=== PATIENT | female | born 1975 | race Caucasian/White ===

== ENCOUNTER 2022-12-12 10:14 | Outpatient (OUT) | payer OTHER, SELFPAY ==
--- NOTE | 2022-12-12 10:00 | VEIN_ITS ---
[address] [address] Patient Name: IFTIKHAR GREEN MRN: [id number] date: 1975 Sex: F Assigned Patient Location: Current Patient Location: Accession/Order Number: [id number] Exam Date: 12/12/2022 10:19 Report Date: 12/12/2022 12:52 At the request of: AMY MADRID Procedure: VC INJ Sclerosing SOLMULT Vein EXAMINATION: VC INJ Sclerosing SOLMULT Vein HISTORY: Painful Varicose Veins The risks and benefits of the procedure were explained at length to the patient and informed written consent was obtained. Charlie Rivera RN was present and assisted. The procedure was performed under sterile technique. The patient's leg was wrapped with Coban and postprocedural verbal and written instructions provided. SCLEROSANT: 2 cc, 0.5% polidocanol VEIN(S) INJECTED: 18 veins in the right leg VISUALIZATION: Ultrasound was not used to visualize the sclerosant ANESTHESIA: Supercooled air COMPLICATIONS: None IMPRESSION: Technically successful sclerotherapy as described Electronically authenticated by: GAGANDEEP CLOUD Date: 12/12/2022 12:52
== END 2022-12-12 10:15 | disposition home or self-care (01) ==
LOC: VC 10:15
PROVIDERS: PCP Radiology Diagnostic Radiology; Visit Provider Radiology Diagnostic Radiology
DX: I83.813 Varicose veins of bilateral lower extremities with pain (principal)
CPT/HCPCS: 36471

== ENCOUNTER 2023-02-23 09:27 | Outpatient (OUT) | payer OTHER, SELFPAY ==
--- NOTE | 2023-02-23 09:28 | VEIN_ITS ---
[address] [address] Patient Name: IFTIKHAR GREEN MRN: [facility]:[id number] date: 1975 Sex: F Assigned Patient Location: Current Patient Location: Accession/Order Number: [id number] Exam Date: 02/23/2023 09:28 Report Date: 02/23/2023 11:59 At the request of: AMY MADRID Procedure: VC INJ Sclerosing SOLMULT Vein EXAMINATION: VC INJ Sclerosing SOLMULT Vein HISTORY: I83.813 Pain due to varicose veins of bilateral leg veins COMPARISON: No relevant comparison available. TECHNIQUE: The risks and benefits of the procedure were explained at length to the patient and informed written consent was obtained. Arlene was present and assisted. The procedure was performed under sterile technique. The patient's leg was wrapped with Coban and postprocedural verbal and written instructions provided. SCLEROSANT: 4 cc, 0.5% polidocanol VEIN(S) INJECTED: 13 veins in the left leg VISUALIZATION: Ultrasound was not used to visualize the sclerosant ANESTHESIA: Supercooled air COMPLICATIONS: None VEIN/VC INJ Sclerosing SOLMULT Vein IMPRESSION: Technically successful sclerotherapy as described Electronically authenticated by: AMY MADRID Date: 02/23/2023 11:59
== END 2023-02-23 09:28 | disposition home or self-care (01) ==
LOC: VC 09:27
PROVIDERS: PCP Radiology Diagnostic Radiology; Visit Provider Radiology Diagnostic Radiology
DX: I83.813 Varicose veins of bilateral lower extremities with pain (principal)
CPT/HCPCS: 36471

== ENCOUNTER 2023-08-02 09:06 | Outpatient (OUT) | payer OTHER, SELFPAY ==
--- NOTE | 2023-08-02 09:07 | VEIN_ITS ---
Patient Name: IFTIKHAR GREEN MR#: [id number] : 1975 Exam Date: 08/02/2023 Ordering Doctor: DR CARLO ALLAN M.D. RADIOLOGY REPORT PROCEDURE: VC EXT VENOUS REFLUX LT LMTD COMPARISON: None. INDICATIONS: Pain due to varicose veins of bilateral legs I83.813 TECHNIQUE: Duplex imaging of the lower extremity to assess the deep and superficial venous system for the presence of deep or superficial venous incompetence and to document the location and severity of disease. The study includes evaluation of the great saphenous vein (GSV), anterior accessory saphenous vein (AASV) and small saphenous vein (SSV). Patient scanned in reverse Trendelenburg and standing. FINDINGS: LEFT LOWER EXTREMITY: Saphenofemoral Junction Reflux: Yes7.1 mm 0.5 sec GSV: Diam (mm) Reflux/Time (sec) Proximal Thigh 5.9 Yes 0.9 Mid Thigh 2.7 No Distal Thigh 3.3 No Prox Calf 2.3 No Mid Calf 1.5 No Saphenopopliteal Junction Reflux: SSV: Proximal Calf 3.1 No Mid Calf 2.0 No AASV: Not present Thrombi: No acute or chronic thrombus visualized Compressibility: Normal Flow: Normal Tech Note: Incompetent GSV. 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 No SPJ visualized. Patent varicose vein medial knee 3.6mm with 0.9s reflux. Patent varicose vein prox/post calf 5.0mm with 1.3s reflux. Patent varicose vein mid/post calf 5.3mm with 2.2s reflux. CONCLUSION: 1. Minimal reflux identified in a small portion of the left great saphenous vein 2. Left leg incompetent varicose veins measuring up to 5.3 mm Dictated by: Carlo Allan MD on 08/02/2023 at 09:45 Approved by: Carlo Allan MD on 08/02/2023 at 09:46
--- NOTE | 2023-08-02 09:07 | VEIN_ITS ---
Patient Name: IFTIKHAR GREEN MR#: [id number] : 1975 Exam Date: 08/02/2023 Ordering Doctor: DR CARLO ALLAN M.D. RADIOLOGY REPORT PROCEDURE: FACILITY EST [facility]PRE[facility]ENS[facility] - OFFICE VISIT INITIAL COMPARISON: EXT VENOUS REFLUX LT LMTD, 08/02/2023. PROGRESS NOTES: 48-year-old female who presents with continued, increased pain in her left leg. The patient describes the pain as aching heaviness and throbbing with cramps primarily along the left medial and posterior calf. The patient rates the pain as a 10 on a scale of 1-10 with significant increase from her last visit. The patient's symptoms are minimally relieved by rest, leg elevation and support stockings which she has worn for years. The patient denies any signs and symptoms to suggest arterial ischemia. The patient has previously been seen at our facility having right leg treatments including intravenous laser ablation and injection sclerotherapy. The patient's insurance declined micro foam chemical foam treatments. The patient's pain now fax her activities of daily living requiring her to stop multiple times throughout the course of the day. The patient has difficulty walking. The patient describes a family history significant for breast cancer lung cancer and hypertension and varicose veins in her mother. . The patient has never smoked. Occasional alcohol use. No illicit drug use. Past medical history significant for low back pain, superficial thrombophlebitis. Past surgical history significant for rhinoplasty. No history of deep vein thrombus or pulmonary embolus. See separate history and physical for medication list. Nursing notes were reviewed. After history and physical exam I discussed at length the pathophysiology of venous hypertension and possible treatments, therapies and strategies available. We discussed at length the importance of elevating the lower extremities above the level of the heart, increased physical activity and compression stocking use. The patient's symptoms and focal pain correspond to multiple incompetent varicose veins along the left lower leg. This was discussed with the patient, unfortunately her insurance company does not approve micro foam chemical ablation. The patient was given a self pay option. Ultrasound venous reflux study performed the same day was discussed at length with the patient. The report demonstrates mild reflux proximal left great saphenous vein period moderate incompetent patent left leg varicose veins PHYSICAL EXAM: The right leg demonstrates scattered reticular and spider veins. No large varicose veins are observed. No active ulceration. No significant edema or hemosiderin staining. The left leg demonstrates multiple varicose veins along the left medial posterior knee and calf. No erythema or warmth to suggest cellulitis or thrombophlebitis. No active ulceration or hemosiderin staining. No subcutaneous edema. Both thighs, legs and feet were symmetrically warm to the touch. Good posterior tibial and dorsalis pedis pulses were present bilaterally. VEIN/VC Facility EST Comprehensive IMPRESSION: 1. Minimal proximal left great saphenous vein venous insufficiency 2. Moderate left leg lower extremity varicose veins 3. No definite lower extremity subcutaneous edema 4. No definite flow significant arterial disease 5. CEAP: C2, Ep, As, Pr PLAN: 1. Microfoam chemical ablation incompetent left leg varicose veins 2. Continue long-term use of bilateral thigh or knee high 20-30 mm compression stockings 3. Continued leg elevation and physical activity for symptomatic relief Nurse notes, history and physical were reviewed and confirmed, see attached forms. The nurse was present throughout the physical exam and consultation Dictated by: Carlo Allan MD on 08/02/2023 at 11:40 Approved by: Carlo Allan MD on 08/02/2023 at 11:47
== END 2023-08-02 09:07 | disposition home or self-care (01) ==
LOC: VC 09:06
PROVIDERS: PCP Radiology Diagnostic Radiology; Visit Provider Radiology Diagnostic Radiology
DX: I83.813 Varicose veins of bilateral lower extremities with pain (principal)
CPT/HCPCS: 93971; G0463

== ENCOUNTER 2024-02-07 12:50 | Outpatient (OUT) | payer OTHER, SELFPAY ==
--- OUTSIDE RECORDS SUMMARY | 2024-02-07 12:56 | XMS_ITS ---
Author Name Auto Generated Organization [facility] Care Team Providers Care Medical Consultant Name Role Phone SONIA RAMIREZ Attending Unavailable NADERER, SONIA Referring Unavailable PETITTI, ADAM Mello Attending Unavailable NADERER, SONIA Referring Unavailable NADERER, SONIA Attending Unavailable NADERER, SONIA Attending Unavailable PETITTI, ADAM Mello Attending Unavailable PROBLEMS No Problem Records Found PROCEDURES No Procedure Records Found RESULTS BI MAMMOGRAM SCREENING TOMOSYNTHESIS BILATERAL Observed: 09/26/2023 1:48 PM Status: F Source: [facility] EPIC REPOSITORY This is a summary report. Th e complete report is available in the patient's medical record. If you cannot access the medical record, please contact the sending organization for a detailed fax or copy. EXAMINATION: BI MAMMOGRAM SCREENING TOMOSYNTHESIS BILATERAL CLINICAL HISTORY:Screening COMPARISON: There are no previous mammograms available for comparison. RESULT: Digital mammography and 3D tomosynthesis of bilateral breasts was performed. Density: Scattered fibroglandular density [2] There is no suspicious mass, asymmetry, architectural distortion, or calcification. IMPRESSION: BIRADS 1 - Negative Follow-up: Routine Screening Mamm Board Certified Radiologists. Accredited by the ACR and FDA. MAMMOGRAPHY IS VERY IMPORTANT TO YOUR HEALTH. THE [employer] GUIDELINES RECOMMEND THAT WOMEN 40 YEARS OF AGE AND OLDER SHOULD HAVE A MAMMOGRAM EVERY YEAR. A REMINDER LETTER WILL BE SENT AT THE APPROPRIATE TIME. THIS FACILITY UTILIZES A REMINDER SYSTEM TO ENSURE ALL PATIENTS RECEIVE REMINDER NOTIFICATIONS AT THE APPROPRIATE TIME BASED ON THE RECOMMENDATIONS OF THIS EXAM. THIS INCLUDES REMINDERS FOR ROUTINE SCREENING MAMMOGRAMS, DIAGNOSTIC MAMMOGRAMS IN WHICH THE PATIENT IS ASKED TO RETURN FOR ADDITIONAL VIEWS, OR OTHER BREAST IMAGING INTERVENTIONS WHEN APPROPRIATE. THE PATIENT WILL BE PLACED IN THE APPROPRIATE REMINDER SYSTEM INCLUDING A REMINDER AT THE APPROPRIATE TIME FOR ANY PENDING ADDITIONAL VIEWS. TRANSCRIBED BY: ELECTRONICALLY SIGNED BY: Renard Banda MD ALLERGIES No Allergies Records Found ENCOUNTERS ADMIT/DISCHARGE ACCOUNT NUMBER ADMITTING ENCOUNTER CLASS LOCATION SOURCE 01/31/2024/ 4 [id number] Ambulatory Building:[facility] EPIC 12/19/2023/ 4 [id number] Ambulatory Building:[facility] EPIC 10/25/2023/ 4 [id number] Ambulatory Building:[facility] EPIC 09/27/2023/ 4 [id number] Ambulatory Building:[facility] EPIC 09/26/2023/ 4 [id number] Ambulatory Building:[facility] EPIC 09/17/2023/ 4 [id number] Ambulatory Building:[facility] EPIC PAYERS ENCOUNTER GUARANTOR PAYER SUBSCRIBER SOURCE 01/31/2024 IFTIKHAR R CLICKDOB: [place], [place] [address]Azd: (HP) [facility]: [id number] Date:2022-07-09 IFTIKHAR R CLICKDOB: [id number] [place], [place] [id number] [place] [address] [facility] EPIC 12/19/2023 IFTIKHAR R CLICKDOB: [place], [place] [address]Ggy: (HP) [facility] Insurance:[facility] Number: [id number] Date:2022-07-09 IFTIKHAR R CLICKDOB: [id number] [place] [address] [facility] EPIC 10/25/2023 IFTIKHAR R CLICKDOB: [place], [place] [address]Orm: (HP) Primary Insurance:[place] MEDICAIDPolicy Number: [id number] Date:2023-07-09 IFTIKHAR R CLICKDOB: [id number] [place] [address] [facility] EPIC 10/25/2023 Secondary Insurance:[facility]Policy Number: [id number] Date:2022-07-09 IFTIKHAR R CLICKDOB: [id number] [place] [address] [facility] EPIC 09/27/2023 IFTIKHAR R CLICKDOB: [place], [place] [address]Tka: (HP) Primary Insurance:[place] MEDICAIDPolicy Number: [id number] Date:2023-07-09 IFTIKHAR R CLICKDOB: [id number] [place] [address] [facility] EPIC 09/27/2023 Secondary Insurance:[facility]Policy Number: [id number] Date:2022-07-09 IFTIKHAR R CLICKDOB: [id number] [place] [address] [facility] EPIC 09/26/2023 IFTIKHAR R CLICKDOB: [place], [place] [address]Sla: (HP) Primary Insurance:[place] MEDICAIDPolicy Number: [id number] Date:2023-07-09 IFTIKHAR R CLICKDOB: [id number] [place] [address] [facility] EPIC 09/26/2023 Secondary Insurance:[employer]Policy Number: [id number] Date:2022-07-09 IFTIKHAR R CLICKDOB: [id number] [place] [address] [facility] EPIC 09/17/2023 DARRYL Bharat CLICKDOB: [place], [place] [address]Rjv: (HP) Primary Insurance:[place] MEDICAIDPolicy Number: [id number] Date:2023-07-09 DARRYL R CLICKDOB: [id number] [place] [address] [facility] EPIC
[2024-02-11 09:07] LABS: Antinuclear Antibodies, IFA Negative (.)
== END 2024-02-07 12:51 | disposition home or self-care (01) ==
PROVIDERS: PCP Family Medicine
DX: R21 Rash and other nonspecific skin eruption (principal)
CPT/HCPCS: 36415; 86038